=== PATIENT | male | born 1930 | race African-American/Black ===

== ENCOUNTER 2017-11-16 10:43 | Outpatient (CLI) ==
[2016-03-12 15:10] VITALS: BMI 22.3
== END 2017-11-16 10:44 | disposition home or self-care (01) ==
LOC: NONPT 10:43
PROVIDERS: ATTEND Emergency Medicine
DX: R82.90 Unspecified abnormal findings in urine (principal); R30.0 Dysuria
CPT/HCPCS: 81001; 87086; 87186

== ENCOUNTER 2018-02-12 12:22 | Emergency (ER) ==
[2018-02-12 12:35] VITALS: BP 108/75; TEMP 97.2; BMI 26.4
--- NOTE | 2018-02-12 12:46 | ED.PDOC ---
General ED Provider: Dr. ADDIS SCHILLING Chief Complaint: Non-specific Complaint Stated Complaint: RT Lower jaw Pain. Prev total Dental extraction. Son states he complains continoulsy of pain in lower rt Jaw Time Seen by Physician: 12:30 Mode of Arrival: Walk-In Information Source: Patient Exam Limitations: No limitations Primary Care Provider: STEVAN CARMONA Referred to ED by: PCP Nursing and Triage Documentation Reviewed and Agree: Yes Does patient meet sepsis criteria?: No System Inflammatory Response Syndrome: Not Applicable Sepsis Protocol: For patient's 13 years and over: Temp is 96.8 and below OR 101 and greater Pulse >90 BPM Resp >20/minute Acutely Altered Mental Status Are patient's symptoms suggestive of a new infection, such as: -Pneumonia -Skin, Soft Tissue -Endocarditis -UTI -Bone, Joint Infection -Implantable Device -Acute Abdominal Infection -Wound Infection -Meningitis -Blood Stream Catheter Infection -Unknown EENT Complaint Exam - Throat Complaint/Exam Onset/Duration: 3 days Symptoms Are: Still present Timimg: Constant (Intermittent worsening) Initial Severity: Moderate Current Severity: Moderate Aggravating: Reports: Eating Alleviating: Reports: None Associated Signs and Symptoms: Reports: Drooling. Denies: Fever, Dysphagia, Foreign body sensation, Chills, Cough, Wheezing, Hoarseness, Sinus discomfort, Nasal congestion, Difficulty breathing, Lethargy, Irritability, Decreased activity, Vomiting, Diarrhea, Decreased hearing, Ear drainage Uvula Midline: Yes Licha-tonsillar Fluctuence: No Scarlatinaform Rash Present: No Lesions: Present: Gums Stridor Present: No Sinus Tenderness Present: No Tonsillar Hypertrophy Present: No Tonsillar Exudate Present: No Licha-tonsillar Swelling Present: No Differential Diagnoses: Other (Retained wisdom tooth) Review of Systems - Review Of Systems Constitutional: Reports: No symptoms Eyes: Reports: No symptoms Ears, Nose, Mouth, Throat: Reports: No symptoms Respiratory: Reports: No symptoms Cardiac: Reports: No symptoms GI: Reports: No symptoms : Reports: No symptoms Musculoskeletal: Reports: No symptoms Skin: Reports: No symptoms Neurological: Reports: No symptoms Endocrine: Reports: No symptoms Hematologic/Lymphatic: Reports: No symptoms All Other Systems: Reviewed and Negative Past Medical History - Past Medical History Previously Healthy: Yes Endocrine: Reports: Dyslipidemia Cardiovascular: Reports: Hypertension Respiratory: Reports: COPD Hematological: Reports: Anemia Gastrointestinal: Reports: Gallstones Genitourinary: Reports: Other (bph) Neuro/Psych: Reports: None Musculoskeletal: Reports: Arthritis, Back Pain Cancer: Reports: None - Surgical History General Surgical History: Reports: None - Family History Family History: Reports: None - Social History Smoking Status: Never smoker Hx Substance Use: No Alcohol Screening: None - Immunizations Tetanus Shot up to Date: Yes Physical Exam - Physical Exam Appearance: Thin Ill-appearing: Mild Pain Distress: Mild Eyes: MAGNUS, EOMI, Conjunctiva clear ENT: Ears normal, Nose normal, Oropharynx normal, Dry mucosa (Rt mandibular ridge is non tender to palpation . No idetifiable open lesions) Respiratory: Airway patent, Breath sounds clear, Breath sounds equal, Respirations nonlabored Cardiovascular: RRR, Pulses normal, No rub, No murmur GI/: Soft, Nontender, No masses, Bowel sounds normal, No Organomegaly Musculoskeletal: Normal strength, ROM intact, No edema, No calf tenderness Skin: Warm, Dry, Normal color Neurological: Sensation intact, Motor intact, Reflexes intact, Cranial nerves intact, Alert, Oriented Psychiatric: Affect appropriate, Mood appropriate Critical Care Note - Critical Care Note Total Time (mins): 0 Course - Course Hematology/Chemistry: 02/12/18 13:40 02/12/18 13:40 Vital Signs: Temp Pulse Resp BP Pulse Ox 02/12/18 12:22 97.2 F L 85 16 108/75 98 Departure - Departure Time of Disposition: 14:25 Disposition: DISCH/TSF TO [facility] Discharge Problem: Mandible pain, Maxillary sinusitis, Sphenoid sinusitis Instructions: Sinusitis (ED) Condition: Good Pt referred to PMD for follow-up: Yes (Dr Carmona) IPMP verified?: No Additional Instructions: Take meds Warm moist heat to area for 20 min twice daily See PCP in 1 wk Tylenol for pain as needed Prescriptions: Amoxicillin/Potassium Clav [Amox Tr-K Clv 875-125 mg Tab] 1 each PO BID #20 tablet Methylprednisolone [Medrol Dosepak] 4 mg PO DIRECTED #1 tab.ds.pk Allergies/Adverse Reactions: Allergies No Known Allergies Allergy (Unverified 02/12/18 12:28) Home Medications: Ambulatory Orders Acetaminophen [Pain & Fever] 650 mg PO PRN PRN 03/08/16 Chlorthalidone 12.5 mg PO DAILY 03/08/16 Finasteride 5 mg PO DAILY 03/08/16 Latanoprost [Xalatan] 1 drop OP DAILY 03/08/16 Midodrine HCl [Midodrine] 2.5 mg PO TID 03/08/16 Potassium Chloride 20 meq PO DAILY 03/08/16 Tamsulosin HCl [Flomax] 0.4 mg PO DAILY 03/08/16 Timolol Maleate 0.25% [Timoptic 0.25% Opth] 1 drop OP BEDTIME 03/08/16 Amoxicillin/Potassium Clav [Amox Tr-K Clv 875-125 mg Tab] 1 each PO BID #20 tablet 02/12/18 Hydrochlorothiazide 12.5 mg PO DAILY 02/12/18 Methylprednisolone [Medrol Dosepak] 4 mg PO DIRECTED #1 tab.ds.pk 02/12/18 Ranitidine HCl [Zantac] 150 mg PO DAILY 02/12/18 Disposition Discussed With: Patient, Family (Explained findings and treatment plan to patients son)
--- NOTE | 2018-02-12 13:31 | CT ---
EXAM: CT of the maxillofacial region without contrast History: Right-sided jaw pain. Technique: Multiplanar CT images through the maxillofacial region were obtained without the administ ration of IV contrast Findings: Orbits are intact. The visualized intracranial contents demonstrate no acute findings. S urrounding soft tissues demonstrate no acute findings. Patient is edentulous. Osteopenia. Moderate t o severe degenerative disc disease at C4-5. There is fluid seen within the right sphenoid sinus. Sev ere bilateral mastoid effusions and fluid seen within the bilateral middle ear cavities. Atheroscler otic vascular calcifications. No acute fracture or dislocation. Bilateral ostiomeatal units are not occluded. Impression: 1. No acute osseous abnormality. 2. Right sphenoid sinusitis. 3. Severe bilateral mastoid effusions and opacification of the bilateral middle ear cavities. 4. Moderate to severe degenerative disc disease at C4-5.
== END 2018-02-12 15:36 ==
LOC: ED 12:22
DX: R68.84 Jaw pain (principal); J32.3 Chronic sphenoidal sinusitis; J32.0 Chronic maxillary sinusitis
CPT/HCPCS: 36415; 80053; 85025; 85651; 99283